=== PATIENT | male | born 1955 | race Caucasian/White ===

== ENCOUNTER 2018-05-10 09:46 | Inpatient (IN) | payer BC ==
[~2018-05-10] VITALS: Ht 160 cm; Wt 50.1 kg
[2018-05-10 10:25] LABS: BASOPHILS # (AUTO) 0.07 x10^3/uL (0-0.1); BASOPHILS % (AUTO) 1 % (0-1); EOSINOPHILS # (AUTO) 0.42 x10^3/uL (0-0.4); EOSINOPHILS % (AUTO) 7 % (1-7); LYMPHOCYTES # (AUTO) 1.59 x10^3/uL (1-3.4); LYMPHOCYTES % (AUTO) 25 % (22-44); MD NO; MEAN CORPUSCULAR HGB CONC 34.5 g/dL (33.2-36.2); MEAN CORPUSCULAR VOLUME 92.9 fL (81-97); MEAN PLATELET VOLUME 8.2 fL (7.4-10.4); MONOCYTES # (AUTO) 0.57 x10^3/uL (0.2-0.8); MONOCYTES % (AUTO) 9 % (2-9); NEUTROPHILS # (AUTO) 3.66 x10^3/uL (1.8-6.8); NEUTROPHILS % (AUTO) 58 % (42-75); PLATELET COUNT 246 x10^3/uL (130-400); RED BLOOD COUNT 4.53 x10^6/uL (4.38-5.82); RED CELL DISTRIBUTION WIDTH 15.5 % (9.4-14.8)
[2018-05-10 10:37] LABS: ALANINE AMINOTRANSFERASE 34 U/L (12-78); ALBUMIN 3.4 g/dL (3.4-5.0); ANION GAP 8 mmol/L (5-15); CALCIUM 8.6 mg/dL (8.5-10.1); CHLORIDE 102 mmol/L (98-107); CREATININE 1.02 mg/dL (0.7-1.3)
[2018-05-10 10:40] LABS: ALKALINE PHOSPHATASE 80 U/L (45-117); BILIRUBIN,TOTAL 0.6 mg/dL (0.2-1.0)
[2018-05-10] MEDS ORDERED: SODIUM CHLORIDE FLUSH 10ML SYR IVF ONE (12:00)
[2018-05-10] MEDS ORDERED: GADOBUTROL 7.5 MMOL/7.5 ML PFS ONE (12:08)
[2018-05-10] MEDS ORDERED: ONDANSETRON 2MG/ML, 2ML IVPush PRN (13:30)
[2018-05-10] MEDS ORDERED: ACETAMINOPHEN 325 MG TABLET PO PRN (13:30)
[2018-05-10] MEDS ORDERED: GABAPENTIN 300 MG CAPSULE PO PRN (13:30)
[2018-05-10] MEDS ORDERED: hydrALAzine 20 MG/ML, 1ML IVPush PRN (13:30)
[2018-05-10] MEDS ORDERED: ASPIRIN 325 MG TABLET EC PO ONE (13:30)
[2018-05-10] MEDS ORDERED: ONDANSETRON ODT 4 MG PO PRN (13:30)
[2018-05-10] MEDS ORDERED: PROMETHAZINE 25 MG/ML, 1ML IM PRN (13:30)
[2018-05-10] MEDS ORDERED: LABETALOL 5MG/ML, 20ML IVPush PRN (13:30)
[2018-05-10 13:35] VITALS: BP 146/86
[2018-05-10] MEDS: HEPARIN 5,000 UNITS/ML, 1ML SQ SCH ×2 (14:29→20:57)
[2018-05-10] MEDS: NICOTINE 7 MG/24 HR PATCH.TD24 TD SCH (14:29)
[2018-05-10] MEDS: LISINOPRIL 10 MG TABLET PO SCH (14:30)
[2018-05-10 14:51] LABS: HEMOGLOBIN A1C 5.7 % (4.2-6.3)
[2018-05-10 15:02] LABS: FREE T4 (FREE THYROXINE) 1.03 ng/dL (0.76-1.46); THYROID STIMULATING HORMONE 2.52 mIU/L (0.358-3.740)
[2018-05-10 18:23] VITALS: BP 145/72
[2018-05-10 18:53] LABS: MICROSCOPIC INDICATED
[2018-05-10 19:08] LABS: CULTURE INDICATED? NO
[2018-05-10 20:00] VITALS: BP 120/73
[2018-05-10] MEDS ORDERED: ATORVASTATIN 40 MG TABLET PO SCH (21:00)
[2018-05-11 02:35] VITALS: BP 100/63
[2018-05-11 05:19] LABS: BASOPHILS # (AUTO) 0.07 x10^3/uL (0-0.1); BASOPHILS % (AUTO) 1 % (0-1); EOSINOPHILS % (AUTO) 11 % (1-7); LYMPHOCYTES # (AUTO) 2.11 x10^3/uL (1-3.4); LYMPHOCYTES % (AUTO) 33 % (22-44); MD NO; MEAN CORPUSCULAR HEMOGLOBIN 31.7 pg (27.5-34.5); MEAN CORPUSCULAR HGB CONC 34.1 g/dL (33.2-36.2); MEAN CORPUSCULAR VOLUME 93.1 fL (81-97); MEAN PLATELET VOLUME 8.5 fL (7.4-10.4); MONOCYTES # (AUTO) 0.81 x10^3/uL (0.2-0.8); MONOCYTES % (AUTO) 13 % (2-9); NEUTROPHILS # (AUTO) 2.74 x10^3/uL (1.8-6.8); NEUTROPHILS % (AUTO) 43 % (42-75); PLATELET COUNT 239 x10^3/uL (130-400); RED BLOOD COUNT 4.49 x10^6/uL (4.38-5.82); RED CELL DISTRIBUTION WIDTH 15.9 % (9.4-14.8)
[2018-05-11] MEDS: HEPARIN 5,000 UNITS/ML, 1ML SQ SCH ×2 (05:28→13:30)
[2018-05-11 05:31] LABS: ALANINE AMINOTRANSFERASE 30 U/L (12-78); ALBUMIN 3.1 g/dL (3.4-5.0); ANION GAP 7 mmol/L (5-15); CALCIUM 8.3 mg/dL (8.5-10.1); CHLORIDE 102 mmol/L (98-107); CHOLESTEROL, TOTAL 163 mg/dL (140-239); CREATININE 0.98 mg/dL (0.7-1.3); TRIGLYCERIDES 68 mg/dL (50-200); VLDL CHOLESTEROL 14 mg/dL (0-25)
[2018-05-11 05:33] LABS: ALKALINE PHOSPHATASE 79 U/L (45-117); BILIRUBIN,TOTAL 0.8 mg/dL (0.2-1.0); CHOL/HDL RATIO 2.9; HDL CHOL % 34 % (26-37); HDL CHOLESTEROL (DIRECT) 56 mg/dL (40-60); LDL CHOLESTEROL,CALCULATED 93 mg/dL (54-169); LDL/HDL RATIO 1.7 (0.5-3.0); TOTAL PROTEIN 7.3 g/dL (6.4-8.2)
[2018-05-11] MEDS ORDERED: ASPIRIN 325 MG TABLET EC PO SCH (06:00)
[2018-05-11 06:30] VITALS: BP 128/72
[2018-05-11] MEDS: LISINOPRIL 10 MG TABLET PO SCH (09:42)
[2018-05-11] MEDS ORDERED: ERGOCALCIFEROL 50,000 UNIT CAPSULE PO SCH (10:00)
[2018-05-11 12:42] VITALS: BP 117/72
[2018-05-11] MEDS ORDERED: ATOR40TA78 PO (13:06)
[2018-05-11] MEDS ORDERED: ASPI-650 PO (13:06)
[2018-05-11] MEDS ORDERED: ERGO500017 PO (13:06)
[2018-05-11] MEDS ORDERED: LOSA25TA6 PO (13:06)
[2018-05-11] MEDS: NICOTINE 7 MG/24 HR PATCH.TD24 TD SCH (13:30)
== END 2018-05-11 15:35 | disposition home or self-care (01) | DRG 66 ==
LOC: ED 12:39 → EDIP 12:40 → ED 13:01 → 4EST 13:34 → DCLOUNGE 05-11 15:29
PROVIDERS: ADMIT Internal Medicine; ATTEND Internal Medicine
DX: I63.9 Cerebral infarction, unspecified (principal); I10 Essential (primary) hypertension; F17.200 Nicotine dependence, unspecified, uncomplicated; E55.9 Vitamin D deficiency, unspecified; G89.29 Other chronic pain; M54.9 Dorsalgia, unspecified; I25.10 Atherosclerotic heart disease of native coronary artery without angina pectoris; Z82.49 Family history of ischemic heart disease and other diseases of the circulatory system; Z86.73 Personal history of transient ischemic attack (TIA), and cerebral infarction without residual deficits; Z71.6 Tobacco abuse counseling
CPT/HCPCS: 0399T; 36415; 70450; 70553; 80053; 80061; 81001; 82306; 82607; 83036; 83735; 84439; 84443; 85025; 93005; 93306; 93880; 99291; A9585; G0378; J1644

== ENCOUNTER 2018-10-25 09:54 | Inpatient (IN) | payer BC ==
[~2018-10-25] VITALS: Ht 160 cm; Wt 58.1 kg
[~2018-10-25 09:54] MED LIST: ASPI-650 PO; ATOR40TA78 PO; ERGO500017 PO; LOSA25TA25 PO
--- NOTE | 2018-10-25 10:20 | NUR ---
PRESENTS WITH BILATERAL LEG WEAKNESS, UPPER EXTREMITY DISCORDINATION X 2 DAYS. LAST KNOWN WELL 10/23/18). PRESENTS TODAY UE DISCORDINATION WORSE THIS MORNING (UNABLE TO BRUSH TEETH/PUT CLOTHES ON) . REPORTS HX OF STROKE WITH RIGHT SIDED DEFICITS. FAST NEGATIVE. NO ASSESSED DEFICITS W/ EXCEPTION OF WIDE STANCE/JERKY GAIT
--- NOTE | 2018-10-25 10:26 | NUR ---
DISCHARGED FROM HOSPITAL AFTER STROKE (JUNE) ON ASA, [place], [place]. RAN OUT OF MEDS AFTER 30 DAYS-HAS NOT BEEN TAKING SINCE THAT TIME. ADMITS TO SMOKING
--- NOTE | 2018-10-25 10:29 | NUR ---
TO CT SCAN
--- NOTE | 2018-10-25 10:45 | NUR ---
BACK FROM CT SCAN. UNCHANGED NEURO EXAM RESTING COMFORTABLY ON GURNERY VSS UPDATED ON ESTIMATED POC-SON WENT HOME PROVIDER SUSPECTS HE WILL BE ADMITTED CALL [facility] IN HAND/SIDE RAILS UP GIVEN WATER/ADDITIONAL BLANKET
[2018-10-25 11:03] LABS: BASOPHILS % (AUTO) 1 % (0-1); EOSINOPHILS # (AUTO) 0.22 x10^3/uL (0-0.4); EOSINOPHILS % (AUTO) 3 % (1-7); LYMPHOCYTES # (AUTO) 1.65 x10^3/uL (1-3.4); LYMPHOCYTES % (AUTO) 21 % (22-44); MD NO; MEAN CORPUSCULAR HEMOGLOBIN 31.7 pg (27.5-34.5); MEAN CORPUSCULAR HGB CONC 34.2 g/dL (33.2-36.2); MEAN CORPUSCULAR VOLUME 92.8 fL (81-97); MEAN PLATELET VOLUME 8.1 fL (7.4-10.4); MONOCYTES # (AUTO) 0.74 x10^3/uL (0.2-0.8); MONOCYTES % (AUTO) 10 % (2-9); NEUTROPHILS # (AUTO) 5.09 x10^3/uL (1.8-6.8); NEUTROPHILS % (AUTO) 65 % (42-75); PLATELET COUNT 283 x10^3/uL (130-400); RED BLOOD COUNT 4.59 x10^6/uL (4.38-5.82); RED CELL DISTRIBUTION WIDTH 15.1 % (9.4-14.8)
[2018-10-25 11:15] LABS: ALBUMIN 3.7 g/dL (3.4-5.0); ANION GAP 10 mmol/L (5-15); CHLORIDE 105 mmol/L (98-107)
[2018-10-25 11:18] LABS: ALANINE AMINOTRANSFERASE 26 U/L (12-78); ALKALINE PHOSPHATASE 90 U/L (45-117); BILIRUBIN,TOTAL 0.9 mg/dL (0.2-1.0); CREATININE 0.97 mg/dL (0.7-1.3); TOTAL PROTEIN 7.7 g/dL (6.4-8.2)
[2018-10-25 11:20] LABS: INTERNATIONAL NORMALIZED RATIO 1.2 (0.93-1.1); PROTHROMBIN TIME 12.5 Seconds (9.6-11.5)
--- NOTE | 2018-10-25 11:50 | NUR ---
UNCHANGED NEURO EXAM RESTING COMFORTABLY ON GURNERY-DEFERRING MEDICATION VSS CALL [facility] IN HAND/SIDE RAILS UP GIVEN WATER/ADDITIONAL BLANKET
--- NOTE | 2018-10-25 12:22 | NUR ---
UNCHANGED NEURO EXAM RESTING COMFORTABLY ON GURNERY VSS CALL [facility] IN HAND/SIDE RAILS UP
[2018-10-25] MEDS: D5%-0.45% NACL 1,000 ML IV SCH ×2 (12:54→20:20)
[2018-10-25] MEDS ORDERED: ONDANSETRON 2MG/ML, 2ML IVPush PRN (13:00)
[2018-10-25] MEDS ORDERED: LABETALOL 20 MG/4 ML IVPush PRN (13:00)
[2018-10-25] MEDS ORDERED: ERGOCALCIFEROL 50,000 UNIT CAPSULE PO SCH (13:00)
[2018-10-25] MEDS ORDERED: METHOCARBAMOL 500 MG TABLET PO PRN (13:00)
[2018-10-25] MEDS ORDERED: ONDANSETRON ODT 4 MG PO PRN (13:00)
[2018-10-25] MEDS ORDERED: POLYETHYLENE GLYCOL 17 GM PACKET PO PRN (13:00)
[2018-10-25] MEDS ORDERED: METHOCARBAMOL 750 MG in DEXTROSE 5% 100 ML IV ONE (13:00)
[2018-10-25 13:07] LABS: CHOL/HDL RATIO 2.8
[2018-10-25 13:08] LABS: FREE T4 (FREE THYROXINE) 1.37 ng/dL (0.76-1.46); LDL/HDL RATIO 1.6 (0.5-3.0)
[2018-10-25 14:13] LABS: HEMOGLOBIN A1C 5.4 % (4.2-6.3)
[2018-10-25] MEDS ORDERED: NICOTINE 7 MG/24 HR PATCH.TD24 TD SCH (15:00)
[2018-10-25 15:04] VITALS: BP 134/78
[2018-10-25] MEDS ORDERED: MAGNESIUM SULFATE PMX 2GM/50ML 50 ML IV ONE (15:30)
[2018-10-25 19:17] VITALS: BP 119/71
[2018-10-25] MEDS ORDERED: ATORVASTATIN 40 MG TABLET PO SCH (21:00)
[2018-10-26] MEDS: D5%-0.45% NACL 1,000 ML IV SCH (01:29)
[2018-10-26 02:54] VITALS: BP 112/69
[2018-10-26 06:00] LABS: BASOPHILS # (AUTO) 0.04 x10^3/uL (0-0.1); BASOPHILS % (AUTO) 1 % (0-1); EOSINOPHILS # (AUTO) 0.57 x10^3/uL (0-0.4); EOSINOPHILS % (AUTO) 10 % (1-7); LYMPHOCYTES # (AUTO) 1.77 x10^3/uL (1-3.4); LYMPHOCYTES % (AUTO) 31 % (22-44); MD NO; MEAN CORPUSCULAR HEMOGLOBIN 32.1 pg (27.5-34.5); MEAN CORPUSCULAR HGB CONC 34.5 g/dL (33.2-36.2); MEAN CORPUSCULAR VOLUME 92.8 fL (81-97); MEAN PLATELET VOLUME 8.1 fL (7.4-10.4); MONOCYTES # (AUTO) 0.82 x10^3/uL (0.2-0.8); MONOCYTES % (AUTO) 14 % (2-9); NEUTROPHILS # (AUTO) 2.54 x10^3/uL (1.8-6.8); NEUTROPHILS % (AUTO) 44 % (42-75); PLATELET COUNT 261 x10^3/uL (130-400); RED BLOOD COUNT 4.37 x10^6/uL (4.38-5.82); RED CELL DISTRIBUTION WIDTH 15.3 % (9.4-14.8)
[2018-10-26] MEDS ORDERED: ASPIRIN 81 MG TABLET EC PO SCH (06:00)
[2018-10-26 06:02] LABS: CALCIUM 8.1 mg/dL (8.5-10.1); CHLORIDE 105 mmol/L (98-107)
[2018-10-26 06:17] LABS: ALANINE AMINOTRANSFERASE 21 U/L (12-78); ALBUMIN 3.1 g/dL (3.4-5.0); ALKALINE PHOSPHATASE 77 U/L (45-117); ANION GAP 5 mmol/L (5-15); BILIRUBIN,TOTAL 0.6 mg/dL (0.2-1.0); CREATININE 0.76 mg/dL (0.7-1.3); TOTAL PROTEIN 6.7 g/dL (6.4-8.2)
[2018-10-26 07:29] VITALS: BP 116/73
--- NOTE | 2018-10-26 08:53 | NUR ---
REC REG/THIN; patient presents with no dysphagia at this time Addendum: 10/26/18 at 0853 by Hailee MORAN Amended: Links added.
[2018-10-26] MEDS ORDERED: SENNA/DOCUSATE TABLET PO SCH (09:00)
[2018-10-26] MEDS ORDERED: CLOPIDOGREL 75 MG TABLET PO SCH (09:00)
[2018-10-26 13:32] VITALS: BP 120/76
[2018-10-26] MEDS ORDERED: CLOP75TA PO (15:10)
[2018-10-26] MEDS ORDERED: METH500T7 PO (15:10)
[2018-10-26] MEDS ORDERED: ASPI81TA45 PO (15:10)
[2018-10-27] MEDS ORDERED: ASPIRIN 81 MG TABLET EC PO SCH (06:00)
== END 2018-10-26 16:17 | disposition home or self-care (01) | DRG 65 ==
LOC: ED 11:25 → EDIP 12:03 → 4EST 13:56
PROVIDERS: ADMIT Internal Medicine; ATTEND Internal Medicine
DX: I63.9 Cerebral infarction, unspecified (principal); G81.94 Hemiplegia, unspecified affecting left nondominant side; G89.29 Other chronic pain; M54.5 Low back pain; E55.9 Vitamin D deficiency, unspecified; M62.838 Other muscle spasm; F17.210 Nicotine dependence, cigarettes, uncomplicated; I11.0 Hypertensive heart disease with heart failure; R29.701 NIHSS score 1; Z87.01 Personal history of pneumonia (recurrent)
CPT/HCPCS: 36415; 70450; 70551; 80053; 80061; 83036; 83735; 84100; 84439; 84443; 85025; 85610; 85730; 99285; G0378; J2800; J3475